=== PATIENT | male | born 1995 | race African-American/Black ===

== ENCOUNTER 2018-02-18 06:30 | Emergency (ER) | payer OTHER, SELFPAY ==
[2018-02-18] MEDS ORDERED: Cyclobenzaprine 10 MG TAB ONE (06:51)
== END 2018-02-18 07:00 | disposition home or self-care (01) ==
LOC: NAV ERS 06:30
DX: S39.012A Strain of muscle, fascia and tendon of lower back, initial encounter (principal); S29.011A Strain of muscle and tendon of front wall of thorax, initial encounter; J45.909 Unspecified asthma, uncomplicated; F17.210 Nicotine dependence, cigarettes, uncomplicated; X50.0XXA Overexertion from strenuous movement or load, initial encounter
CPT/HCPCS: 99283

== ENCOUNTER 2018-11-08 19:54 | Emergency (ER) | payer SELFPAY ==
[2018-11-08] MEDS ORDERED: Lidocaine Viscous Sol 2% 15 ml UD Cup ONE (20:37)
[2018-11-08] MEDS ORDERED: Ondansetron ODT 4 MG TAB ONE (20:37)
[2018-11-08] MEDS ORDERED: Mag-Al Plus 1200 MG/1200 MG/120 MG/30 ML UDCUP ONE (20:37)
== END 2018-11-08 21:45 | disposition home or self-care (01) ==
LOC: NAV ERS 19:54
DX: R11.2 Nausea with vomiting, unspecified (principal); R10.9 Unspecified abdominal pain; F17.210 Nicotine dependence, cigarettes, uncomplicated; J45.909 Unspecified asthma, uncomplicated
CPT/HCPCS: 99283; Q0162

== ENCOUNTER 2019-07-08 06:21 | Emergency (ER) | payer SELFPAY | END 2019-07-08 07:05 | disposition home or self-care (01) | LOC: NAV ERS 06:21 | DX: H05.222 Edema of left orbit (principal); J45.909 Unspecified asthma, uncomplicated; F17.210 Nicotine dependence, cigarettes, uncomplicated | CPT/HCPCS: 99281 ==

== ENCOUNTER 2019-11-12 14:44 | Emergency (ER) | payer SELFPAY | END 2019-11-12 15:45 | disposition home or self-care (01) | LOC: NAV ERS 14:44 | DX: J10.1 Influenza due to other identified influenza virus with other respiratory manifestations (principal); J45.909 Unspecified asthma, uncomplicated; F17.210 Nicotine dependence, cigarettes, uncomplicated; Z79.51 Long term (current) use of inhaled steroids | CPT/HCPCS: 87804; 94640; J7620 ==

== ENCOUNTER 2019-11-13 08:42 | Emergency (ER) | payer SELFPAY ==
[2019-11-13] MEDS ORDERED: methylPREDNISolone Sod Succ/PF 125 MG/2 ML VIAL ONE (09:37)
== END 2019-11-13 10:15 | disposition home or self-care (01) ==
LOC: NAV ERS 08:42
DX: J11.1 Influenza due to unidentified influenza virus with other respiratory manifestations (principal); J45.901 Unspecified asthma with (acute) exacerbation; F17.210 Nicotine dependence, cigarettes, uncomplicated; Z79.51 Long term (current) use of inhaled steroids
CPT/HCPCS: 96372; J2930; J7620

== ENCOUNTER 2022-12-17 15:04 | Emergency (ER) | payer OTHER, SELFPAY ==
[2022-12-17] MEDS ORDERED: Amlodipine 5 MG TAB ONE (15:31)
[2022-12-17] MEDS ORDERED: Orphenadrine Citrate 60 MG/2 ML VIAL ONE (15:31)
[2022-12-17] MEDS ORDERED: diphenhydrAMINE 50 MG/ML VIAL ONE (15:47)
[2022-12-17] MEDS ORDERED: Ketorolac Tromethamine 30 MG/ML VIAL ONE (15:47)
[2022-12-17] MEDS ORDERED: Prochlorperazine 10 MG/2 ML VIAL ONE (15:47)
[2022-12-17] MEDS ORDERED: Sodium Chloride 0.9% 1,000 ML ONE (15:47)
== END 2022-12-17 17:20 | disposition home or self-care (01) ==
LOC: NAV ERS 15:04
DX: R51.9 Headache, unspecified (principal); I10 Essential (primary) hypertension; F17.210 Nicotine dependence, cigarettes, uncomplicated; Z79.899 Other long term (current) drug therapy
CPT/HCPCS: 96374; 96375; J0780; J1200; J1885; J2360; J7050